=== PATIENT | female | born 1960 | race Caucasian/White ===

== ENCOUNTER → 2023-07-22 10:55 | Outpatient (REF) | payer OTHER, SELFPAY ==
--- NOTE | 2023-07-22 11:01 | CA_ITS ---
Transthoracic Echocardiogram Patient (Last, First, Middle): Paula Pina, Gender: Female Date of : 1960 Age: 63 Procedure Date: 07/22/2023 Procedure Type: Transthoracic Echocardiogram Location: OP Height: 160.02 cm Weight: 63.5 kg BSA: 1.66 m2 Heart Rate: bpm BP: 138 / 70 mmHg Behaviorist: TO Referring MD: Raghavendra Her MD Symptoms: I63.9 CEREBRAL INFARCTION Study Quality: Adequate w/ bubble ECG Rhythm: Sinus Conclusions: - The left ventricular systolic function is normal. The calculated ejection fraction is 62% by biplane method. - The basal inferolateral segment is hypokinetic. - No obvious valvular pathology seen on this study. - There is no evidence of interatrial shunt by agitated saline. Findings Left Ventricle Normal left ventricular cavity size. The left ventricular systolic function is normal. The calculated ejection fraction is 62% by biplane method. Diastolic function is normal for age. LV peak GLS -16.9% (slightly reduced). Wall Motion Rest Echo Findings The basal inferolateral segment is hypokinetic. Right Ventricle Normal right ventricular cavity size and systolic function. Atria Both atria are normal in size. There is no evidence of interatrial shunt by agitated saline. (rest and valsalva). Aortic Valve The aortic valve was not well visualized. There is no aortic valve stenosis. There is no aortic valve regurgitation. Mitral Valve There is mild anterior mitral leaflet thickening. There is mild mitral annular calcification. There is no mitral valve regurgitation. There is no mitral valve stenosis. Pulmonic Valve The pulmonic valve is likely normal. Tricuspid Valve Normal tricuspid valve structure. There is trace tricuspid valve regurgitation. There is no evidence of pulmonary hypertension. Great Vessels The asc aorta is normal in size. Venous The inferior vena cava is normal in size and collapses greater than 50% with inspiration. Pericardium/Pleural There is no evidence of pericardial effusion. Prior Study Comparison No prior study available for comparison. Recommendations, Care & Conclusions No obvious valvular pathology seen on this study. Measurements 2D Linear Measurements IVSd: 1.15 0.6-0.9/0.6-1.0 cm LVIDd: 4.46 3.9-5.3/4.2-5.9 cm LVIDd Index: 2.69 2.4-3.2/2.2-3.1 cm/m2 LVIDs: 3.36 2.0-3.6 cm LVPWd: 0.82 0.7-1.1 cm LA Diam: 3.10 2.7-3.8/3.0-4.0 cm LAIDs Index: 1.87 1.5-2.3 cm/m2 LV Mass: 183.83 67-162/88-224 g LV Mass Index: 110.74 43-95/49-115 g/m2 LVOT Diam: 2.00 3.0+(-)1.3 cm 2D Systolic Function EF 4C: 64.00 >55% EF 2C: 60.60 >55% EF BiP: 61.50 >55% Mitral Valve MV Pk E: 0.69 MV PK A: 0.93 MV Decel Time: 157.00 E/A: 0.70 E'Lateral: 9.03 E'Medial: 7.94 E/E' Med: 8.70 E/E' Lat: 7.60 PHT: 46.00 MVA PHT: 4.78 Decel [place]: 4.40 Aortic Valve AoV Pk Scott: 1.42 AoV Mn Scott: 0.91 AoV VTI: 0.23 AoV Pk Grad: 8.00 Aov Mn Grad: 4.00 TONE Cont.VTI: 2.84 LVOT LVOT Pk Scott: 1.22 LVOT Mn Scott: 0.78 LVOT VTI: 0.21 LVOT Pk Grad: 6.00 LVOT Mn Grad: 3.00 LVOT Diam: 2.00 LVOT Area: 3.14 Diastolic Function MV Pk E: 0.69 MV Pk A: 0.93 E/A: 0.70 E'Medial: 7.94 E/E' Med: 8.70 E' Laterial: 9.03 E/E' Lat: 7.60 Right Ventricle TAPSE (mm): 22.70 TVS' Scott: 10.30 Tricuspid Valve RA Press: 3.00 Great Vessels Aorta Sinus of Valsalva: 2.95 2.0-3.5 cm Ao Asc: 2.90 2.1-3.4 cm Updated in Other Vendor System with Status of Final Theron Eng MD electronically signed on 07/23/2023 10:29:16 AM with status of Final
== END ==
LOC: HO.CARD 10:55
PROVIDERS: PCP Nurse Practitioner Family; Visit Provider Internal Medicine
DX: I63.9 Cerebral infarction, unspecified (principal)
CPT/HCPCS: 93306; 93356

== ENCOUNTER → 2023-07-22 11:01 | Outpatient (BNV) | payer OTHER, SELFPAY | PROVIDERS: PCP Nurse Practitioner Family; Visit Provider Internal Medicine | DX: I63.9 Cerebral infarction, unspecified (principal) | CPT/HCPCS: 93306 ==